=== PATIENT | male | born 1980 | race Caucasian/White ===

== ENCOUNTER 2020-08-23 23:09 | Emergency (ER) | payer OTHER ==
[~2020-08-23] VITALS: Ht 177.8 cm; Wt 83.9 kg
[~2020-08-23 23:09] MED LIST: FLEXERIL PO; IBUPROFEN 200200 M1; ULTRAM 50MG TAB50 MG PO
[2020-08-23 23:19] VITALS: BP 121/78
[2020-08-23] MEDS ORDERED: ULTRAM 50MG TAB50 MG PO (23:32)
[2020-08-23] MEDS ORDERED: CEPHALEXIN500 MG PO (23:32)
[2020-08-23] MEDS ORDERED: BACTRIM DS TAB1 EACH PO (23:32)
== END 2020-08-24 00:01 | disposition home or self-care (01) ==
LOC: ER 23:09
DX: L03.116 Cellulitis of left lower limb (principal); F17.210 Nicotine dependence, cigarettes, uncomplicated; Z88.6 Allergy status to analgesic agent